=== PATIENT | female | born 1995 | race Caucasian/White ===

== ENCOUNTER → 2021-05-04 | Outpatient (REF) | payer OTHER | LOC: M PLALAB 10:35 | PROVIDERS: ATTEND Advanced Practice Midwife | DX: Z34.92 Encounter for supervision of normal pregnancy, unspecified, second trimester (principal); Z53.9 Procedure and treatment not carried out, unspecified reason ==

== ENCOUNTER → 2021-05-28 | Outpatient (CLI) | payer OTHER | LOC: M WHC 08:11 | PROVIDERS: ATTEND Advanced Practice Midwife | DX: Z36.89 Encounter for other specified antenatal screening (principal); Z3A.21 21 weeks gestation of pregnancy ==

== ENCOUNTER → 2021-06-11 | Outpatient (CLI) | payer OTHER | LOC: M WHC 13:59 | PROVIDERS: ATTEND Obstetrics & Gynecology | DX: Z34.82 Encounter for supervision of other normal pregnancy, second trimester (principal); Z36.2 Encounter for other antenatal screening follow-up; Z3A.22 22 weeks gestation of pregnancy ==

== ENCOUNTER → 2021-06-11 | Outpatient (CLI) | payer OTHER ==
[2021-06-11 16:52] LABS: HEPATITIS C VIRUS ABY INDEX 0.2 INDEX (<0.8); HIV 1&2 SCREEN CENTAUR NEGATIVE (NEGATIVE)
== END ==
LOC: M PLALAB 13:47
PROVIDERS: ATTEND Advanced Practice Midwife
DX: Z34.92 Encounter for supervision of normal pregnancy, unspecified, second trimester (principal); Z36.2 Encounter for other antenatal screening follow-up; Z3A.22 22 weeks gestation of pregnancy; Z36.89 Encounter for other specified antenatal screening

== ENCOUNTER → 2021-06-29 | Outpatient (REF) | payer OTHER | LOC: M PLALAB 14:01 | PROVIDERS: ATTEND Advanced Practice Midwife | DX: Z34.92 Encounter for supervision of normal pregnancy, unspecified, second trimester (principal); Z53.9 Procedure and treatment not carried out, unspecified reason ==

== ENCOUNTER → 2021-07-05 | Outpatient (CLI) | payer OTHER | LOC: M PLALAB 11:35 | PROVIDERS: ATTEND Obstetrics & Gynecology | DX: O09.292 Supervision of pregnancy with other poor reproductive or obstetric history, second trimester (principal) ==

== ENCOUNTER → 2021-07-08 | Outpatient (CLI) | payer OTHER ==
[2021-07-08 13:39] LABS: HEMATOCRIT 34.3 % (36.0-47.0); HEMOGLOBIN 11.4 g/dl (12.0-15.5); MEAN CORPUSCULAR HEMOGLOBIN 31.2 pg (27.0-33.0); MEAN CORPUSCULAR HGB CONC 33.2 g/dl (32.0-36.5); PLATELET COUNT, AUTOMATED 233 10^3/uL (150-450); RED BLOOD COUNT 3.65 10^6/uL (4.00-5.40); WHITE BLOOD COUNT 10.5 10^3/uL (4.0-10.0)
== END ==
LOC: M PLALAB 09:56
PROVIDERS: ATTEND Advanced Practice Midwife
DX: Z34.92 Encounter for supervision of normal pregnancy, unspecified, second trimester (principal)

== ENCOUNTER → 2021-09-09 | Outpatient (REF) | payer OTHER | LOC: M PLALAB 10:33 | PROVIDERS: ATTEND Advanced Practice Midwife | DX: Z36.85 Encounter for antenatal screening for Streptococcus B (principal); O09.893 Supervision of other high risk pregnancies, third trimester ==

== ENCOUNTER 2021-10-03 15:17 | Outpatient (CLI) | payer OTHER ==
[~2021-10-03] VITALS: Ht 167.6 cm; Wt 104.6 kg
[2021-10-03 15:43] VITALS: BP 137/87
[2021-10-03] MEDS ORDERED: PRENTAB9 PO (18:15)
== END 2021-10-03 20:38 | disposition home or self-care (01) ==
LOC: M LDO 15:17
PROVIDERS: ATTEND Obstetrics & Gynecology
DX: O47.1 False labor at or after 37 completed weeks of gestation (principal); Z3A.38 38 weeks gestation of pregnancy
CPT/HCPCS: 59025; G0463

== ENCOUNTER 2021-10-04 01:01 | Inpatient (IN) | payer OTHER ==
[~2021-10-04] VITALS: Ht 170.2 cm; Wt 104.0 kg
[2021-10-04] VITALS (29 sets, daily range): BP systolic 83–149; BP diastolic 45–98
[~2021-10-04 01:01] MED LIST: PRENTAB9 PO
[2021-10-04] MEDS ORDERED: LR 800 ML IV ONE (01:35)
[2021-10-04] MEDS ORDERED: LR 1,000 ML IV SCH (01:35)
[2021-10-04 01:43] LABS: HEMATOCRIT 33.6 % (36.0-47.0); HEMOGLOBIN 11.5 g/dl (12.0-15.5); MEAN CORPUSCULAR HEMOGLOBIN 28.9 pg (27.0-33.0); MEAN CORPUSCULAR HGB CONC 34.2 g/dl (32.0-36.5); MEAN CORPUSCULAR VOLUME 84.4 fl (80.0-96.0); PLATELET COUNT, AUTOMATED 252 10^3/uL (150-450); RED BLOOD COUNT 3.98 10^6/uL (4.00-5.40); WHITE BLOOD COUNT 18.2 10^3/uL (4.0-10.0)
[2021-10-04] MEDS ORDERED: FENTANYL 2MCG/ML ROPIVACAINE 0.2% IN 0.9% NACL 100ML IVBAG As Ordered ONE (01:51)
[2021-10-04] MEDS ORDERED: ePHEDrine SULFATE 25 MG/5 ML(5MG/ML) SYRINGE IVP PRN (01:55)
[2021-10-04] MEDS ORDERED: ONDANSETRON 4MG 2ML VIAL IV PRN (01:55)
[2021-10-04] MEDS ORDERED: NALOXONE INJ 0.4MG/1ML VIAL (J2310 PER 1MG) IV PRN (01:55)
[2021-10-04] MEDS ORDERED: LR 500 ML IV PRN (01:55)
[2021-10-04] MEDS ORDERED: FENTANYL/ROPIVACAINE/NACL BAG 100 ML EPIDURAL SCH (01:55)
[2021-10-04] MEDS ORDERED: EPIDURAL/PCA KEYS XX PRN (01:55)
[2021-10-04] MEDS ORDERED: diphenhydrAMINE 50MG/ML VIAL (J1200) IV PRN (01:55)
[2021-10-04] MEDS ORDERED: ePHEDrine SULFATE 25 MG/5 ML(5MG/ML) SYRINGE As Ordered ONE (02:30)
[2021-10-04] MEDS ORDERED: OXYTOCIN DRIP 30 UNITS in IV 1 EA IV SCH ×2 (02:40→04:40)
[2021-10-04] MEDS ORDERED: RHOGAM 300 MCG (1500 IU) INJ (J2790) IM SCH (04:40)
[2021-10-04] MEDS ORDERED: IBUPROFEN 600MG TAB PO PRN (04:40)
[2021-10-04] MEDS ORDERED: IBUPROFEN 800 MG TAB PO PRN (04:40)
[2021-10-04] MEDS ORDERED: METHYLERGONOVINE MALEATE 0.2 MG TAB PO PRN (04:40)
[2021-10-04] MEDS ORDERED: DIBUCAINE 1% OINTMENT 30GM TOP PRN (04:40)
[2021-10-04] MEDS ORDERED: ACETAMINOPHEN TAB 650MG DOSE (2X325MG) PO PRN (04:40)
[2021-10-04] MEDS ORDERED: ACETAMINOPHEN 500 MG TAB PO PRN (04:40)
[2021-10-04] MEDS ORDERED: DOCUSATE SODIUM 100MG CAPSULE PO PRN (04:40)
[2021-10-04 04:41] LABS: CORD GAS ABE V -6.4; CORD GAS HCO3 A 20.7 MEQ/L; CORD GAS HCO3 V 18.6 MEQ/L; CORD GAS O2 SAT A 25.9 %; CORD GAS O2 SAT V 72.2 %; CORD GAS PCO2 A 67.5 mmHg; CORD GAS PCO2 V 35.9 mmHg; CORD GAS PH V 7.332 UNITS; CORD GAS PO2 A 17.4 mmHg; CORD GAS PO2 V 31.7 mmHg; CORD GAS SBC A 15.1 MEQ/L; CORD GAS SBC V 18.7 MEQ/L; CORD GAS TCO2 A 22.8 MEQ/L; CORD GAS TCO2 V 19.7 MEQ/L
[2021-10-04 04:42] LABS: CORD GAS PH A 7.105 UNITS
[2021-10-04] MEDS: PRENATAL VITAMINS CHEWABLE TABLET PO SCH (07:51)
[2021-10-04] MEDS ORDERED: CALCIUM CARBONATE 500 MG CHEW U/D PO PRN (13:05)
[2021-10-05 06:00] VITALS: BP 100/51
[2021-10-05] MEDS: PRENATAL VITAMINS CHEWABLE TABLET PO SCH (08:09)
[2021-10-05] MEDS ORDERED: ANUSOL HC CREAM 30GM TOP SCH (09:00)
[2021-10-05] MEDS ORDERED: IBUP80TA PO (14:40)
[2021-10-05] MEDS ORDERED: ACET-683 PO (14:40)
[2021-10-06] MEDS ORDERED: MEASLES,MUMPS,RUBELLA VACCINE INJ (MMR-II) (90707) SC.IMMUN ONE (09:00)
== END 2021-10-05 17:36 | disposition home or self-care (01) | DRG 807 ==
LOC: M LDO 01:01 → M LDI 01:08 → M OBS 06:35
PROVIDERS: ADMIT Obstetrics & Gynecology; ATTEND Obstetrics & Gynecology
PROC: 10E0XZZ Delivery of Products of Conception, External Approach (ICD-10-PCS; principal; 2021-10-04)
PROC: 10907ZC Drainage of Amniotic Fluid, Therapeutic from Products of Conception, Via Natural or Artificial Opening (ICD-10-PCS; 2021-10-04)
DX: O69.81X0 Labor and delivery complicated by cord around neck, without compression, not applicable or unspecified (principal); Z37.0 Single live birth; Z3A.38 38 weeks gestation of pregnancy; O77.0 Labor and delivery complicated by meconium in amniotic fluid

== ENCOUNTER → 2023-03-31 | Outpatient (REF) | payer OTHER ==
[~2023-03-31] MED LIST changes: +ACET-683 PO; +IBUP80TA PO
== END ==
LOC: M SFHCWAGY 13:24
PROVIDERS: ATTEND Obstetrics & Gynecology
DX: Z12.4 Encounter for screening for malignant neoplasm of cervix (principal)
CPT/HCPCS: G0123; G0463

== ENCOUNTER → 2023-05-03 | Outpatient (CLI) | payer OTHER ==
[2023-05-03 09:47] LABS: BASO % 0.6 % (0.0-1.0); EOS # 0.1 10^3/uL (0.0-0.5); EOS % 1.4 % (0.0-3.0); HEMATOCRIT 40.3 % (36.0-47.0); HEMOGLOBIN 13.7 g/dl (12.0-15.5); LYMPH # 1.7 10^3/uL (1.5-5.0); LYMPH % 32.7 % (24.0-44.0); MEAN CORPUSCULAR HEMOGLOBIN 30.8 pg (27.0-33.0); MEAN CORPUSCULAR VOLUME 90.6 fl (80.0-96.0); MONO # 0.3 10^3/uL (0.0-0.8); MONO % 5.8 % (2.0-8.0); NEUTROPHILS % 59.3 % (36.0-66.0); PLATELET COUNT, AUTOMATED 238 10^3/uL (150-450); RED BLOOD COUNT 4.45 10^6/uL (4.00-5.40); WHITE BLOOD COUNT 5.1 10^3/uL (4.0-10.0)
[2023-05-03 10:18] LABS: CORTISOL AM 15.4 UG/DL (4.3-22.4)
[2023-05-03 10:21] LABS: THYROID STIMULATING HORMONE 0.893 uIU/ML (0.55-4.78)
[2023-05-03 10:22] LABS: ALBUMIN 3.6 G/DL (3.2-5.2); ALKALINE PHOSPHATASE 52 U/L (46-116); ALT/SGPT 18 U/L (7.0-40); AST/SGOT 22 U/L (<34); BILIRUBIN,TOTAL 0.4 MG/DL (0.3-1.2); BLOOD UREA NITROGEN 16 MG/DL (9-23); CALCIUM LEVEL 8.8 MG/DL (8.5-10.1); CARBON DIOXIDE LEVEL 28 MMOL/L (20-31); CHLORIDE LEVEL 107 MMOL/L (98-107); CREATININE FOR GFR 0.76 MG/DL (0.55-1.30); FOLATE 14.5 NG/ML (>5.4); GLOMERULAR FILTRATION RATE > 60.0 (>60); GLUCOSE, FASTING 84 MG/DL (60-100); IRON (FE) 83 UG/DL (50-170); PERCENT SATURATION 20.5 % (13.2-45.0); POTASSIUM SERUM 4.2 MMOL/L (3.5-5.1); SODIUM LEVEL 140 MMOL/L (136-145); TOTAL 25(OH) VITAMIN D 29.4 NG/ML (20.0-100.0); TOTAL IRON BINDING CAPACITY 404 UG/DL (250-425); TOTAL PROTEIN 6.5 G/DL (5.7-8.2); VITAMIN B12 LEVEL 345 PG/ML (211-911)
[2023-05-03 10:23] LABS: FREE T4 0.95 NG/DL (0.89-1.76)
[2023-05-04 23:07] LABS: TESTOSTERONE FREE (DIRECT) 0.4 pg/mL (0.0-4.2)
== END ==
LOC: M LAB 09:16
PROVIDERS: ATTEND Nurse Practitioner Adult Health
DX: G47.8 Other sleep disorders (principal); R14.0 Abdominal distension (gaseous); R68.82 Decreased libido; R53.83 Other fatigue

== ENCOUNTER → 2024-12-26 | Outpatient (REF) | payer OTHER ==
[2024-12-28 14:12] LABS: HPV APTIMA Not Detected (Not Detected)
== END ==
LOC: M SFHCWAGY 13:15
PROVIDERS: ATTEND Obstetrics & Gynecology
DX: Z12.4 Encounter for screening for malignant neoplasm of cervix (principal)
CPT/HCPCS: 87624; G0123